=== PATIENT | male | born 1945 | race American Indian/Alaskan Native ===

== ENCOUNTER 2018-07-08 05:52 | Day surgery (SDC) | payer MEDICARE, OTHER ==
[2018-07-08] MEDS ORDERED: MARCAINE 0.25% INFILTRATI ONE ×3 (06:46→08:28)
[2018-07-08] MEDS ORDERED: XYLOCAINE 1% 20 mL ONE (06:46)
[2018-07-08] MEDS ORDERED: NUPERCAINAL ONE (06:46)
[2018-07-08] MEDS ORDERED: LACTATED RINGERS 1,000 ML ONE (06:53)
[2018-07-08] MEDS ORDERED: SUBLIMAZE ONE (07:22)
[2018-07-08] MEDS ORDERED: DIPRIVAN 10 MG/ML IV ONE (07:23)
[2018-07-08] MEDS ORDERED: XYLOCAINE MPF 2% ONE (07:23)
[2018-07-08] MEDS ORDERED: BLOXIVERZ ONE (07:23)
[2018-07-08] MEDS ORDERED: ROBINUL ONE (07:23)
[2018-07-08] MEDS ORDERED: ZEMURON IV ONE (07:23)
[2018-07-08] MEDS ORDERED: DILAUDID IV PRN (07:27)
[2018-07-08] MEDS ORDERED: LACTATED RINGERS 1,000 ML IV SCH (08:00)
[2018-07-08] MEDS ORDERED: XYLOCAINE 1% 20 mL INFILTRATI ONE ×2 (08:29)
--- NOTE | 2018-07-08 08:31 | Anesthesia Consultation ---
Anesthesia Consult and Med Hx Date of service: 07/08/18 - Airway Anesthetic Teeth Evaluation: Good ROM Head & Neck: Adequate Mental/Hyoid Distance: Adequate Mallampati Class: Class II Intubation Access Assessment: Probably Good - Pulmonary Exam CTA: Yes - Cardiac Exam Cardiac Exam: RRR - Pre-Operative Health Status ASA Pre-Surgery Classification: ASA2 Proposed Anesthetic Plan: General - Pulmonary Hx Smoking: Yes (SINCE AGE 20; QUIT 2003) Hx Respiratory Symptoms: No COPD: No Hx Sleep Apnea: Yes - Cardiovascular System Hx Hypertension: No Hx Heart Attack/AMI: No Hx Cardia Arrhythmia: No Hx Pacemaker: No (EKG in EMR w/ V-paced rhythm does not belong to this patient.) - Central Nervous System CVA: No Hx Back Pain: Yes Hx Psychiatric Problems: Yes (depression/anxiety) - Gastrointestinal Hx Gastroesophageal Reflux Disease: No - Endocrine Hx Renal Disease: No Hx Liver Disease: No Hx Insulin Dependent Diabetes: No Hx Non-Insulin Dependent Diabetes: No Hx Thyroid Disease: No - Other Systems Hx Cancer: Yes (hx prostate ca) Hx Obesity: No - Additional Comments Anesthesia Medical History Comments: No hx anesthetic complications.
--- NOTE | 2018-07-08 08:32 | Anesthesia Day of Surgery ---
Anesthesia Day of Surgery - Day of Surgery Patient Examined: Yes Patient H&P Reviewed: Yes Patient is NPO: Yes
--- NOTE | 2018-07-08 09:24 | Short Stay Summary ---
Short Stay Documentation Date of service: 07/08/18 - History Principal diagnosis: grade 3 internal hemorrhoid H&P: obtained from office - Allergies and Medications Current Medications: Allergies No Known Allergies Allergy (Verified 07/07/18 10:06) Home Medications Medication Instructions Recorded Confirmed Last Taken Type Docusate Sodium [Colace] 100 mg PO BID #30 capsule 07/08/18 Unknown Rx Polyethylene Glycol 3350 [Miralax] 119 gm PO DAILY #30 powder 07/08/18 Unknown Rx oxyCODONE /ACETAMINOPHEN [Percocet 1 tab PO Q4HR PRN #30 tab 07/08/18 Unknown Rx 5/325] Active Medications Hydromorphone HCl (Dilaudid) 0.5 mg IV Q10MIN PRN PRN Reason: Pain , Severe (7-10) Stop: 07/08/18 20:00 Lactated Ringer's (Lactated Ringers) 1,000 mls @ 100 mls/hr IV DIRECT JONI - Brief post op/procedure progress note Date of procedure: 07/08/18 Pre-op diagnosis: grade 3 internal hemorrhoids Post-op diagnosis: same Procedure: hemorrhoidectomy Anesthesia: GETA, local Findings: Large, complex hemorrhoid pile - left lateral Surgeon: MARIAM LOZANO Brick Sorter: SHAINA LUI Estimated blood loss: 50-100ml Pathology: list (internal hemorrhoid) Specimen disposition: to lab Condition: stable - Hospital course Hospital course: Pt observed in PACU and discharged to home in stable condition - Disposition Condition at discharge: Good Disposition: DC-01 TO HOME OR SELFCARE Short Stay Discharge Plan Activity: no restrictions Diet: regular Wound: open to air Additional Instructions: SEE PRINTED DISCHARGE INSTRUCTIONS Follow up with: MARIAM LOZANO DO [Staff Physician] - 14 Days [facility] [Primary Care Provider] - 7 Days Prescriptions: Docusate Sodium [Colace] 100 mg PO BID #30 capsule Polyethylene Glycol 3350 [Miralax] 119 gm PO DAILY #30 powder oxyCODONE /ACETAMINOPHEN [Percocet 5/325] 1 tab PO Q4HR PRN #30 tab PRN Reason: Pain , Severe (7-10)
[2018-07-08 10:32] VITALS: BP 130/79
--- NOTE | 2018-07-08 11:54 | Post Anesthesia Evaluation ---
- Post Anesthesia Evaluation Patient Participated: Yes Airway Patent: Yes Stable Respiratory Function: Yes Nausea/Vomiting: No Temp > 96.8F: Yes Pain Manageable: Yes Adequeate Hydration: Yes Anesthesia Complications: No
--- NOTE | 2018-07-08 18:35 | Operative Report ---
PREOPERATIVE DIAGNOSIS: Grade 3 internal hemorrhoids. POSTOPERATIVE DIAGNOSIS: Grade 3 internal hemorrhoids. PROCEDURE: Hemorrhoidectomy. ANESTHESIA: General endotracheal anesthesia, local. FINDINGS: Large, complex hemorrhoid piles, left lateral. SURGEON: Germania Sharma DO. FREEZER UNLOADER: Luis Franklin MD ESTIMATED BLOOD LOSS: 50 mL. PATHOLOGY: Internal hemorrhoids. SPECIMEN DISPOSITION: To lab. CONDITION AND DISPOSITION: The patient is stable to PACU. HISTORY OF PRESENT ILLNESS AND INDICATIONS: The patient is a 72-year-old male, who was referred to the surgery office for evaluation of hemorrhoids. The patient has been dealing with internal hemorrhoids for many years and has undergone banding. Despite this, he still notes prolapsing of the hemorrhoid as well as discomfort for which he needs to use anorectal treatment several times a day. On physical exam, the patient was found to have a grade 3 internal hemorrhoid, which was reducible with manual pressure. A surgical hemorrhoidectomy was recommended and all risks, benefits and alternatives to surgery were discussed with the patient. Questions were answered and consent was obtained. PROCEDURE IN DETAIL: The patient was identified in the preoperative area and taken back to the operating room and anesthesia was induced on the stretcher. After the patient was intubated, he was placed on the operating room table in prone position with all bony prominences padded. The patient was placed in jackknife position and the buttocks were taped apart using tape. The rectum was then prepped and draped in the usual sterile fashion. Timeout was performed. The rectum was examined and a large left lateral prolapsing internal hemorrhoid was identified. There was associated redundancy of the rectal mucosa. This hemorrhoid was complex. The hemorrhoid was grasped and the apex was identified. A 2-0 Vicryl suture was placed at the apex and a circumferential incision was made from the apex of the hemorrhoid and around using a 15 blade. Dissection was then carried out using a handheld Harmonic scalpel. The hemorrhoid was dissected free from the underlying external sphincter muscles with hemostasis being achieved along the way. Once the hemorrhoid was circumferentially dissected from the underlying muscle, it was transected distal to the stitch at the apex. This was passed off the table as a specimen. The mucosa was then reapproximated using a 2-0 Vicryl suture in a running fashion. A small opening was left at the distal most portion of the incision and great care was taken not to involve the skin at the anus. The wound was irrigated and checked for hemostasis, which was carefully ensured. There was no bleeding seen. The rectum was packed with a Surgicel foam gauze lubricated with dibucaine 1% ointment. An anorectal block was given using a 50:50 mixture of 1% lidocaine and 0.25% Marcaine without epinephrine. ABD pad was placed over the rectum. At the end of the case, all sponge, instrument, sharp counts were correct x 2. The patient was transferred to the stretcher in supine position. He was extubated and taken to PACU in stable condition. JOB# [id number] SHANTHI/NAHID OLGUIN
== END 2018-07-08 05:53 | disposition home or self-care (01) ==
LOC: OR 05:52
PROVIDERS: ATTEND Surgery
DX: K64.2 Third degree hemorrhoids (principal); M19.90 Unspecified osteoarthritis, unspecified site; F32.9 Major depressive disorder, single episode, unspecified; G47.30 Sleep apnea, unspecified; Z79.899 Other long term (current) drug therapy; Z87.891 Personal history of nicotine dependence; Z98.42 Cataract extraction status, left eye; Z98.41 Cataract extraction status, right eye; E78.00 Pure hypercholesterolemia, unspecified; Z85.46 Personal history of malignant neoplasm of prostate; Z72.89 Other problems related to lifestyle; Z98.890 Other specified postprocedural states
CPT/HCPCS: 46999; 88304; J1170; J2704; J2710; J3010; J7120